=== PATIENT | male | born 1995 | race Caucasian/White ===

== ENCOUNTER 2017-08-21 08:07 | Emergency (ER) | payer OTHER ==
[~2017-08-21] VITALS: Ht 180.3 cm; Wt 91.2 kg
[~2017-08-21 08:07] MED LIST: CIPR250T30 PO; CIPR500T94 PO; DICL75TA PO; HYDR-971 PO; KETO10TA PO; ONDA4TAB10 PO; TAMS0.4C97 PO
[2017-08-21] MEDS ORDERED: 0.9 % SODIUM CHLORIDE 10 ML DISP.SYRIN. IV PRN (08:45)
[2017-08-21] MEDS ORDERED: KETOROLAC 30 MG/ML VIAL. IV ONE (08:45)
[2017-08-21] MEDS ORDERED: ONDANSETRON PF 4 MG/2 ML VIAL. IV ONE (08:45)
[2017-08-21] MEDS: IV NORMAL SALINE 1,000ML 1,000 ML IV SCH ×2 (08:54→09:37)
[2017-08-21 09:05] LABS: BILIRUBIN,URINE NEG (NEG); CLARITY,URINE HAZY; COLOR,URINE YELLOW; GLUCOSE,URINE NEG (NEG)
[2017-08-21 09:06] LABS: BACTERIA,URINE 0 /HPF (0-FEW); NITRITE,URINE NEG (NEG); RBC,URINE >40 /HPF (0-2); UROBILINOGEN,URINE 0.2 mg/dL (0.2 mg/dL); WBC,URINE RARE /HPF (0-4)
[2017-08-21 09:06] LABS: BASO # 0.1 x10^3/uL (0.0-0.2); BASO % 1 % (0-3); EOS # 0.2 x10^3/uL (0.0-0.7); EOS % 1 % (0-3); LYMPH # 1.9 x10^3/uL (1.0-4.8); LYMPH % 17 % (24-48); MEAN CORPUSCULAR HEMOGLOBIN 31 pg (25-35); MEAN CORPUSCULAR HGB CONC 34 g/dL (31-37); MEAN CORPUSCULAR VOLUME 92 fL (79-100); MONO # 0.8 x10^3/uL (0.0-1.1); MONO % 8 % (0-9); NEUT % 73 % (31-73); PLATELET COUNT 211 x10^3/uL (140-400); RED BLOOD COUNT 4.45 x10^6/uL (4.30-5.70); RED CELL DISTRIBUTION WIDTH 12.9 % (11.5-14.5)
--- NOTE | 2017-08-21 09:19 | PHYS DOC ---
Past History Past Medical History: Kidney Stones Past Surgical History: Other Smoking: Non-smoker Alcohol Use: None Drug Use: None Adult General Chief Complaint Chief Complaint: FLANK PAIN [facility] HPI 22-year-old male patient with history of multiple kidney stones and treatment with lithotripsy and stent placement in the left kidney, complaining of pressure feeling in right flank since yesterday. Patient complaining of severe right flank pain since 4 AM today as a constant and sharp pain with radiation to lower abdomen and associated with nausea without vomiting. Patient complaining of dark-colored urine. Patient states the pain getting worse with movement and rated his pain 9/10.. Patient denies fever and chills, vomiting, diarrhea. Patient states he thinks he was dehydrated for the last few days because he didn't drink enough liquids. Review of Systems Review of Systems Constitutional: Denies fever or chills [] Eyes: Denies change in visual acuity, redness, or eye pain [] HENT: Denies nasal congestion or sore throat [] Respiratory: Denies cough or shortness of breath [] Cardiovascular: No additional information not addressed in HPI [] GI: Denies abdominal pain, vomiting, bloody stools or diarrhea , reports nausea [] : Denies dysuria or hematuria, reports flank pain [] Musculoskeletal: Denies back pain or joint pain [] Integument: Denies rash or skin lesions [] Neurologic: Denies headache, focal weakness or sensory changes [] Endocrine: Denies polyuria or polydipsia [] All other systems were reviewed and found to be within normal limits, except as documented in this note. Current Medications Current Medications Current Medications Medications (Trade) Dose Ordered Sig/[facility] Start Time Stop Time Status Last Admin Dose Admin Ketorolac Tromethamine (Toradol) 30 mg 1X ONCE 08/21/17 08:45 08/21/17 08:46 DC 08/21/17 08:57 30 MG Ondansetron HCl (Zofran) 4 mg 1X ONCE 08/21/17 08:45 08/21/17 08:46 DC 08/21/17 08:56 4 MG Sodium Chloride (Normal Saline Flush) 10 ml QSHIFT PRN 08/21/17 08:45 Allergies Allergies Allergies Coded Allergies Type Severity Reaction Last Updated Verified No Known Drug Allergies 08/13/15 No Physical Exam Physical Exam Constitutional: Well developed, well nourished, moderate distress, non-toxic appearance. [] HENT: Normocephalic, atraumatic, bilateral external ears normal, oropharynx moist, no oral exudates, nose normal. [] Eyes: PERRLA, EOMI, conjunctiva normal, no discharge. [] Neck: Normal range of motion, no tenderness, supple, no stridor. [] Cardiovascular:Heart rate regular rhythm, no murmur [] Lungs & Thorax: Bilateral breath sounds clear to auscultation [] Abdomen: Bowel sounds normal, soft, no tenderness, no masses, no pulsatile masses. [] Skin: Warm, dry, no erythema, no rash. [] Back: No tenderness, mild right CVA tenderness. [] Extremities: No tenderness, no cyanosis, no clubbing, ROM intact, no edema. [] Neurologic: Alert and oriented X 3, normal motor function, normal sensory function, no focal deficits noted. [] Psychologic: Affect normal, judgement normal, mood normal. [] Current Patient Data Vital Signs Vital Signs Date Time Temp Pulse Resp B/P (MAP) Pulse Ox O2 Delivery O2 Flow Rate FiO2 08/21/17 08:30 97.4 66 18 95 Room Air Lab Results Laboratory Tests Test 08/21/17 08:35 08/21/17 08:48 Urine Collection Type Void Urine Color Yellow Urine Clarity Hazy Urine pH 5.5 Urine Specific [place] >=1.030 Urine Protein 30 mg/dl (NEG-TRACE) Urine Glucose (UA) Neg mg/dL (NEG) Urine Ketones (Stick) Trace mg/dL (NEG) Urine Blood Large (NEG) Urine Nitrite Neg (NEG) Urine Bilirubin Neg (NEG) Urine Urobilinogen Dipstick 0.2 mg/dL (0.2 mg/dL) Urine Leukocyte Esterase Neg (NEG) Urine RBC >40 /HPF (0-2) Urine WBC Rare /HPF (0-4) Urine Squamous Epithelial Cells None /LPF Urine Bacteria 0 /HPF (0-FEW) Urine Mucus Marked /LPF White Blood Count 11.0 x10^3/uL (4.0-11.0) Red Blood Count 4.45 x10^6/uL (4.30-5.70) Hemoglobin 14.0 g/dL (13.0-17.5) Hematocrit 41.0 % (39.0-53.0) Mean Corpuscular Volume 92 fL (79-100) Mean Corpuscular Hemoglobin 31 pg (25-35) Mean Corpuscular Hemoglobin Concent 34 g/dL (31-37) Red Cell Distribution Width 12.9 % (11.5-14.5) Platelet Count 211 x10^3/uL (140-400) Neutrophils (%) (Auto) 73 % (31-73) Lymphocytes (%) (Auto) 17 % (24-48) L Monocytes (%) (Auto) 8 % (0-9) Eosinophils (%) (Auto) 1 % (0-3) Basophils (%) (Auto) 1 % (0-3) Neutrophils # (Auto) 8.0 x10^3uL (1.8-7.7) H Lymphocytes # (Auto) 1.9 x10^3/uL (1.0-4.8) Monocytes # (Auto) 0.8 x10^3/uL (0.0-1.1) Eosinophils # (Auto) 0.2 x10^3/uL (0.0-0.7) Basophils # (Auto) 0.1 x10^3/uL (0.0-0.2) EKG EKG [] Radiology/Procedures Radiology/Procedures [CT abdomen and pelvis reported 2 mm stone in right distal ureter with mild hydronephrosis] Course & Med Decision Making Course & Med Decision Making Pertinent Labs and Imaging studies reviewed. (See chart for details) [ Evaluation of patient in ER showed 22-year-old male patient with history of kidney stones presented to ER with right flank pain since this morning. Patient had mild right flank tenderness and treated with IV fluid and Zofran and Toradol and morphine and felt better. Labs was unremarkable except for hematuria. CT showed 2 mm stone in the right distal ureter. Patient instructed to follow up with his urologist and increase fluid intake and activity and strain all of his urine.] Dragon Disclaimer Dragon Disclaimer This electronic medical record was generated, in whole or in part, using a voice recognition dictation system. Departure Departure: Impression: Primary Impression: Renal colic on right side Additional Impression: Ureterolithiasis Disposition: 01 HOME, SELF-CARE (At 1015) Condition: IMPROVED Referrals: VERÓNICA FARRIS (PCP) Patient Instructions: Diet for Kidney Stones, Kidney Stones Additional Instructions: Follow-up with your urologist in one or 2 days Drink plenty of liquids Return [facility] if not getting better Scripts Tramadol Hcl (ULTRAM) 50 Mg Tablet 50 MG PO PRN Q6HRS Y for PAIN, #20 TAB Prov: LOVE COOLEY MD 08/21/17 Ondansetron (ZOFRAN ODT) 4 Mg Tab.rapdis 1 TAB SL Q8HRS, #15 TAB Prov: LOVE COOLEY MD 08/21/17 Ibuprofen (IBUPROFEN) 800 Mg Tablet 1 TAB PO TID, #30 TAB Prov: LOVE COOLEY MD 08/21/17 Tamsulosin Hcl (FLOMAX) 0.4 Mg Cap.er.24h 1 CAP PO DAILY, #30 CAP 11 Refills Prov: LOVE COOLEY MD 08/21/17 Problem Qualifiers LOVE COOLEY MD Aug 21, 2017 09:19
[2017-08-21 09:23] LABS: ALBUMIN 3.7 g/dL (3.4-5.0); ALBUMIN/GLOBULIN RATIO 1.3 (1.0-1.7); CALCIUM 8.4 mg/dL (8.5-10.1); CREATININE 1.1 mg/dL (0.7-1.3); POTASSIUM 3.5 mmol/L (3.5-5.1); TOTAL BILIRUBIN 0.5 mg/dL (0.2-1.0); TOTAL PROTEIN 6.6 g/dL (6.4-8.2)
[2017-08-21] MEDS ORDERED: MORPHINE SULFATE 4 MG/ML DISP.SYRIN. ONE (09:25)
[2017-08-21] MEDS ORDERED: IV NORMAL SALINE 1,000ML 1,000 ML IV ONE (09:45)
[2017-08-21] MEDS ORDERED: MORPHINE SULFATE 4 MG/ML DISP.SYRIN. IV ONE (09:45)
--- NOTE | 2017-08-21 10:05 | RAD ---
CT abdomen and pelvis without contrast 08/21/2017 Clinical indication: Acute flank pain. Comparison: CT abdomen and pelvis 08/13/2015, 01/21/2015. Technique: Multiple CT images of the abdomen and pelvis were obtained without contrast according to standard protocol. PQRS Compliance Statement: One or more of the following individualized dose reduction techniques were utilized for this examination: 1. Automated exposure control 2. Adjustment of the mA and/or kV according to patient size 3. Use of iterative reconstruction technique Findings: Evaluation of the solid abdominopelvic viscera, lymphadenopathy and vasculature is limited in the absence of intravenous contrast. The dome of the liver is not evaluated as it is not included in the [id number]. Unenhanced contours of the gallbladder, spleen, adrenal glands, pancreas and left kidney are grossly unremarkable. There is a 2 mm obstructive calculus in the distal right ureter just proximal to the UVJ series 2/image 117 with resultant mild upstream hydroureteronephrosis. No nephrolithiasis. Small and large bowel loops are normal in caliber without obstruction. Appendix is normal in appearance. No abdominal free fluid. No pneumoperitoneum. Mildly distended and unopacified urinary bladder is unremarkable without intraluminal radiopaque calculi. Prostate and seminal vesicles are present. There is a tiny fat-containing left inguinal hernia. There are no destructive osseous lesions. Impression: 2 mm obstructive distal right ureteral calculus with mild upstream hydroureteronephrosis.
[2017-08-21] MEDS ORDERED: ONDA4TAB10 SL (10:21)
[2017-08-21] MEDS ORDERED: IBUP800T19 PO (10:21)
[2017-08-21] MEDS ORDERED: TAMS0.4C97 PO (10:21)
[2017-08-21] MEDS ORDERED: TRAM-48 PO (10:21)
[2017-08-21] MEDS ORDERED: TAMSULOSIN 0.4 MG CAP.ER.24H. PO ONE (10:30)
[2017-08-21] MEDS ORDERED: traMADol 50 MG TABLET PO ONE (10:30)
[2017-08-21 10:53] VITALS: BP 123/77
== END 2017-08-21 10:56 | disposition home or self-care (01) ==
LOC: ER 08:07
DX: N13.2 Hydronephrosis with renal and ureteral calculous obstruction (principal); Z87.442 Personal history of urinary calculi
CPT/HCPCS: 36415; 74176; 80053; 81001; 85025; 96361; 96374; 96375; 99285; J1885; J2270; J2405; J7030

== ENCOUNTER 2018-02-23 15:57 | Emergency (ER) | payer OTHER ==
[~2018-02-23] VITALS: Ht 180.3 cm; Wt 88.5 kg
[~2018-02-23 15:57] MED LIST changes: +IBUP800T19 PO; +ONDA4TAB10 SL; +TRAM-48 PO
[2018-02-23 16:00] VITALS: BP 161/81
--- NOTE | 2018-02-23 16:23 | ED.ADGEN ---
Past History Past Medical History: Kidney Stones Past Surgical History: Other Smoking: Non-smoker Alcohol Use: None Drug Use: None Adult General Chief Complaint Chief Complaint Right back pain HPI HPI The patient has a history of prior kidney stones treated by Dr. Trevizo and Dr. Kerns. His last kidney stone was in July 2017. Since then, he was well until 3 weeks ago when he noted onset of intermittent right flank pain. This pain was waxing and waning mild to moderate in severity until this morning at 8: 00 AM when he woke with severe 10/10 right flank pain. He had nausea without vomiting. He's had no fevers. Denies hematuria. Review of Systems Review of Systems Constitutional: Denies fever or chills Eyes: Denies change in visual acuity, redness, or eye pain HENT: Denies nasal congestion or sore throat Respiratory: Denies cough or shortness of breath Cardiovascular: Denies chest pain or palpitations GI: Denies abdominal pain, nausea, vomiting, bloody stools or diarrhea : Denies dysuria or hematuria. No flank pain Musculoskeletal: With right back pain, no joint pain Integument: Denies rash or skin lesions Neurologic: Denies headache, focal weakness or sensory changes Endocrine: Denies polyuria or polydipsia All other systems were reviewed and found to be within normal limits, except as documented in this note. Current Medications Current Medications Current Medications Medications (Trade) Dose Ordered Sig/Marcella Start Time Stop Time Status Last Admin Dose Admin Fentanyl Citrate (Fentanyl 2ml Vial) 100 mcg 1X ONCE 02/23/18 16:50 02/23/18 16:51 DC 02/23/18 16:35 100 MCG Ketorolac Tromethamine (Toradol) 30 mg 1X ONCE 02/23/18 16:50 02/23/18 16:51 DC 02/23/18 16:36 30 MG Ondansetron HCl (Zofran) 4 mg 1X ONCE 02/23/18 16:50 02/23/18 16:51 DC 02/23/18 16:36 4 MG Sodium Chloride 1,000 ml @ 1,000 mls/hr 1X ONCE 02/23/18 16:30 02/23/18 17:29 DC 02/23/18 16:35 1,000 MLS/HR Allergies Allergies Allergies Coded Allergies Type Severity Reaction Last Updated Verified No Known Drug Allergies 08/13/15 No Physical Exam Physical Exam Constitutional: Well developed, well nourished, no acute distress, non-toxic appearance. HENT: Normocephalic, atraumatic, bilateral external ears normal, oropharynx moist, no oral exudates, nose normal. Eyes: PERRLA, EOMI, conjunctiva normal, no discharge. Neck: Normal range of motion, no tenderness, supple, no stridor. Cardiovascular:Heart rate regular rhythm, no murmur Lungs & Thorax: Bilateral breath sounds clear to auscultation Abdomen: Bowel sounds normal, soft, no tenderness, no masses, no pulsatile masses. Right lower back tenderness. No flank tenderness Skin: Warm, dry, no erythema, no rash. Back: No tenderness, no CVA tenderness. Extremities: No tenderness, no cyanosis, no clubbing, ROM intact, no edema. Neurologic: Alert and oriented X 3, normal motor function, normal sensory function, no focal deficits noted. Psychologic: Affect normal, judgement normal, mood normal. Current Patient Data Vital Signs Vital Signs Date Time Temp Pulse Resp B/P (MAP) Pulse Ox O2 Delivery O2 Flow Rate FiO2 02/23/18 16:25 Room Air 02/23/18 16:00 98.2 72 18 97 Lab Results Laboratory Tests Test 02/23/18 16:14 02/23/18 16:20 White Blood Count 7.3 x10^3/uL (4.0-11.0) Red Blood Count 4.92 x10^6/uL (4.30-5.70) Hemoglobin 15.4 g/dL (13.0-17.5) Hematocrit 45.3 % (39.0-53.0) Mean Corpuscular Volume 92 fL (79-100) Mean Corpuscular Hemoglobin 31 pg (25-35) Mean Corpuscular Hemoglobin Concent 34 g/dL (31-37) Red Cell Distribution Width 13.1 % (11.5-14.5) Platelet Count 241 x10^3/uL (140-400) Neutrophils (%) (Auto) 57 % (31-73) Lymphocytes (%) (Auto) 34 % (24-48) Monocytes (%) (Auto) 7 % (0-9) Eosinophils (%) (Auto) 2 % (0-3) Basophils (%) (Auto) 1 % (0-3) Neutrophils # (Auto) 4.2 x10^3uL (1.8-7.7) Lymphocytes # (Auto) 2.5 x10^3/uL (1.0-4.8) Monocytes # (Auto) 0.5 x10^3/uL (0.0-1.1) Eosinophils # (Auto) 0.1 x10^3/uL (0.0-0.7) Basophils # (Auto) 0.1 x10^3/uL (0.0-0.2) Sodium Level 139 mmol/L (136-145) Potassium Level 3.8 mmol/L (3.5-5.1) Chloride Level 103 mmol/L (98-107) Carbon Dioxide Level 30 mmol/L (21-32) Anion Gap 6 (6-14) Blood Urea Nitrogen 12 mg/dL (8-26) Creatinine 0.9 mg/dL (0.7-1.3) Estimated GFR (Cockcroft-Gault) 104.6 BUN/Creatinine Ratio 13 (6-20) Glucose Level 89 mg/dL (70-99) Calcium Level 9.7 mg/dL (8.5-10.1) Total Bilirubin 0.5 mg/dL (0.2-1.0) Aspartate Amino Transferase (AST) 28 U/L (15-37) Alanine Aminotransferase (ALT) 55 U/L (16-63) Alkaline Phosphatase 82 U/L (46-116) Total Protein 7.8 g/dL (6.4-8.2) Albumin 4.3 g/dL (3.4-5.0) Albumin/Globulin Ratio 1.2 (1.0-1.7) Lipase 93 U/L (73-393) Urine Collection Type Unknown Urine Color Colorless Urine Clarity Clear Urine pH 7.0 Urine Specific [place] <=1.005 Urine Protein Neg (NEG-TRACE) Urine Glucose (UA) Neg mg/dL (NEG) Urine Ketones (Stick) Neg mg/dL (NEG) Urine Blood Neg (NEG) Urine Nitrite Neg (NEG) Urine Bilirubin Neg (NEG) Urine Urobilinogen Dipstick 0.2 mg/dL (0.2 mg/dL) Urine Leukocyte Esterase Neg (NEG) Urine RBC 0 /HPF (0-2) Urine WBC Rare /HPF (0-4) Urine Squamous Epithelial Cells None /LPF Urine Bacteria 0 /HPF (0-FEW) Laboratory Tests Test 02/23/18 16:14 02/23/18 16:20 White Blood Count 7.3 x10^3/uL Red Blood Count 4.92 x10^6/uL Hemoglobin 15.4 g/dL Hematocrit 45.3 % Mean Corpuscular Volume 92 fL Mean Corpuscular Hemoglobin 31 pg Mean Corpuscular Hemoglobin Concent 34 g/dL Red Cell Distribution Width 13.1 % Platelet Count 241 x10^3/uL Neutrophils (%) (Auto) 57 % Lymphocytes (%) (Auto) 34 % Monocytes (%) (Auto) 7 % Eosinophils (%) (Auto) 2 % Basophils (%) (Auto) 1 % Neutrophils # (Auto) 4.2 x10^3uL Lymphocytes # (Auto) 2.5 x10^3/uL Monocytes # (Auto) 0.5 x10^3/uL Eosinophils # (Auto) 0.1 x10^3/uL Basophils # (Auto) 0.1 x10^3/uL Sodium Level 139 mmol/L Potassium Level 3.8 mmol/L Chloride Level 103 mmol/L Carbon Dioxide Level 30 mmol/L Anion Gap 6 Blood Urea Nitrogen 12 mg/dL Creatinine 0.9 mg/dL Estimated GFR (Cockcroft-Gault) 104.6 BUN/Creatinine Ratio 13 Glucose Level 89 mg/dL Calcium Level 9.7 mg/dL Total Bilirubin 0.5 mg/dL Aspartate Amino Transf (AST/SGOT) 28 U/L Alanine Aminotransferase (ALT/SGPT) 55 U/L Alkaline Phosphatase 82 U/L Total Protein 7.8 g/dL Albumin 4.3 g/dL Albumin/Globulin Ratio 1.2 Lipase 93 U/L Urine Collection Type Unknown Urine Color Colorless Urine Clarity Clear Urine pH 7.0 Urine Specific [place] <=1.005 Urine Protein Neg Urine Glucose (UA) Neg mg/dL Urine Ketones (Stick) Neg mg/dL Urine Blood Neg Urine Nitrite Neg Urine Bilirubin Neg Urine Urobilinogen Dipstick 0.2 mg/dL Urine Leukocyte Esterase Neg Urine RBC 0 /HPF Urine WBC Rare /HPF Urine Squamous Epithelial Cells None /LPF Urine Bacteria 0 /HPF Current Medications Medications (Trade) Dose Ordered Sig/Marcella Route PRN Reason Start Time Stop Time Status Last Admin Dose Admin Ketorolac Tromethamine (Toradol) 30 mg 1X ONCE IV 02/23/18 16:50 02/23/18 16:51 DC 02/23/18 16:36 30 MG Sodium Chloride 1,000 ml @ 1,000 mls/hr 1X ONCE IV 02/23/18 16:30 02/23/18 17:29 DC 02/23/18 16:35 1,000 MLS/HR Fentanyl Citrate (Fentanyl 2ml Vial) 100 mcg 1X ONCE IV 02/23/18 16:50 02/23/18 16:51 DC 02/23/18 16:35 100 MCG Ondansetron HCl (Zofran) 4 mg 1X ONCE IV 02/23/18 16:50 02/23/18 16:51 DC 02/23/18 16:36 4 MG EKG EKG 17:45 ECG Sinus Bradycardia without acute changes Radiology/Procedures Radiology/[place] [address] IMAGING REPORT Signed PATIENT: CHRISTIANO CHOI ACCOUNT: [id number] : 1995 LOCATION: ER AGE: 22 SEX: M EXAM STATUS: PRE ER ORD. PHYSICIAN: ALEXX CLAYTON MD REASON: right flank pain PROCEDURE: CT ABDOMEN PELVIS WO CONTRAST PQRS Compliance Statement: One or more of the following individualized dose reduction techniques were utilized for this examination: 1. Automated exposure control 2. Adjustment of the mA and/or kV according to patient size 3. Use of iterative reconstruction technique CT ABDOMEN PELVIS WO CONTRAST Clinical Indication: right flank pain x 3 weeks, hx of stones, surg 2016 for kidney stones Comparison: CT abdomen and pelvis without contrast, August 21, 2017. Technique: Helical CT imaging of the abdomen and pelvis is performed without IV or oral contrast. Findings: Evaluation of solid organs and bowel is limited without oral and IV contrast, decreasing sensitivity for detection of pathology. Lung bases are clear. Cardiac size normal. Liver, gallbladder, spleen, pancreas, adrenal glands, and abdominal aorta caliber are normal. There is no renal, ureteral, or bladder calculus. There is no perinephric stranding or hydronephrosis. Stomach unremarkable. No dilated small bowel. No colon wall thickening. The appendix is normal. There are a few subcentimeter mesenteric lymph nodes. No abdominal adenopathy or free fluid. Urinary bladder is normal. Prostate and seminal vesicles are normal. No pelvic free fluid. No acute bone abnormality. IMPRESSION: No acute abdominal or pelvic abnormality. Electronically signed by: Delbert Monet MD (02/23/2018 4:44 PM) [facility] DICTATED AND SIGNED BY: DELBERT MONET MD DATE: 02/23/18 1824 CC: VERÓNICA FARRIS; ALEXX CLAYTON MD ~ Course & Med Decision Making Course & Med Decision Making Patient presents with right lower back pain DDx-kidney stone, lumbar strain, UTI The patient was stable in the ED, improved after IV NS hydration, Toradol and fentanyl. Labs were unremarkable. U/A unremarkable. Abdominal pelvic CT scan unremarkable. ECG without acute injury pattern. The cause of the patient's pain is unclear and maybe secondary to lumbar strain. Patient was given his results and advised to return to the ED if he develops worse pain, fevers, vomiting or SOB. Final Impression Final Impression Clinical Impression Right Sided Back Pain Dragon Disclaimer [place] Disclaimer This electronic medical record was generated, in whole or in part, using a voice recognition dictation system. Departure Departure: Impression: Primary Impression: Right-sided back pain Disposition: HOME, SELF-CARE Condition: STABLE Referrals: SHARON RENAE MD Follow-up on Sunday for further evaluation Patient Instructions: Back Pain, Adult, [id number] Additional Instructions: Follow-up on Sunday for further evaluation of your right sided back pain. If you develop worse pain, fevers, shortness of breath, vomiting return to the Emergency Department immediately. Scripts [Parafon Forte] No Conflict Check 500 MG PO TID for 5 Days, #15 Prov: ALEXX CLAYTON MD 02/23/18 Ibuprofen (IBUPROFEN) 800 Mg Tablet 1 TAB PO TID, #15 TAB Prov: ALEXX CLAYTON MD 02/23/18 ALEXX CLAYTON MD Feb 23, 2018 16:23
[2018-02-23 16:29] LABS: BASO # 0.1 x10^3/uL (0.0-0.2); BASO % 1 % (0-3); EOS # 0.1 x10^3/uL (0.0-0.7); EOS % 2 % (0-3); HEMATOCRIT 45.3 % (39.0-53.0); HEMOGLOBIN 15.4 g/dL (13.0-17.5); LYMPH # 2.5 x10^3/uL (1.0-4.8); LYMPH % 34 % (24-48); MEAN CORPUSCULAR HEMOGLOBIN 31 pg (25-35); MEAN CORPUSCULAR HGB CONC 34 g/dL (31-37); MEAN CORPUSCULAR VOLUME 92 fL (79-100); MONO # 0.5 x10^3/uL (0.0-1.1); MONO % 7 % (0-9); NEUT # 4.2 x10^3uL (1.8-7.7); NEUT % 57 % (31-73); PLATELET COUNT 241 x10^3/uL (140-400); RED BLOOD COUNT 4.92 x10^6/uL (4.30-5.70); RED CELL DISTRIBUTION WIDTH 13.1 % (11.5-14.5); WHITE BLOOD COUNT 7.3 x10^3/uL (4.0-11.0)
[2018-02-23] MEDS ORDERED: IV NORMAL SALINE 1,000ML 1,000 ML IV ONE (16:30)
[2018-02-23 16:36] LABS: BILIRUBIN,URINE NEG (NEG); CLARITY,URINE CLEAR; COLOR,URINE COLORLESS; GLUCOSE,URINE NEG (NEG)
[2018-02-23 16:37] LABS: BACTERIA,URINE 0 /HPF (0-FEW); NITRITE,URINE NEG (NEG); RBC,URINE 0 /HPF (0-2); UROBILINOGEN,URINE 0.2 mg/dL (0.2 mg/dL); WBC,URINE RARE /HPF (0-4)
[2018-02-23 16:43] LABS: ALBUMIN 4.3 g/dL (3.4-5.0); ALBUMIN/GLOBULIN RATIO 1.2 (1.0-1.7); CALCIUM 9.7 mg/dL (8.5-10.1); CREATININE 0.9 mg/dL (0.7-1.3); GFR 104.6; POTASSIUM 3.8 mmol/L (3.5-5.1); TOTAL BILIRUBIN 0.5 mg/dL (0.2-1.0); TOTAL PROTEIN 7.8 g/dL (6.4-8.2)
--- NOTE | 2018-02-23 16:47 | RAD ---
PQRS Compliance Statement: One or more of the following individualized dose reduction techniques were utilized for this examination: 1. Automated exposure control 2. Adjustment of the mA and/or kV according to patient size 3. Use of iterative reconstruction technique CT ABDOMEN PELVIS WO CONTRAST Clinical Indication: right flank pain x 3 weeks, hx of stones, surg 2016 for kidney stones Comparison: CT abdomen and pelvis without contrast, August 21, 2017. Technique: Helical CT imaging of the abdomen and pelvis is performed without IV or oral contrast. Findings: Evaluation of solid organs and bowel is limited without oral and IV contrast, decreasing sensitivity for detection of pathology. Lung bases are clear. Cardiac size normal. Liver, gallbladder, spleen, pancreas, adrenal glands, and abdominal aorta caliber are normal. There is no renal, ureteral, or bladder calculus. There is no perinephric stranding or hydronephrosis. Stomach unremarkable. No dilated small bowel. No colon wall thickening. The appendix is normal. There are a few subcentimeter mesenteric lymph nodes. No abdominal adenopathy or free fluid. Urinary bladder is normal. Prostate and seminal vesicles are normal. No pelvic free fluid. No acute bone abnormality. IMPRESSION: No acute abdominal or pelvic abnormality. Electronically signed by: Delbert Monet MD (02/23/2018 4:44 PM) [facility]
[2018-02-23] MEDS ORDERED: ONDANSETRON PF 4 MG/2 ML VIAL. IV ONE (16:50)
[2018-02-23] MEDS ORDERED: KETOROLAC 30 MG/ML VIAL. IV ONE (16:50)
--- NOTE | 2018-02-23 18:18 | EKG ---
[address] [address] Test Date: 2018-02-23 Test Time: 17:40:48 Pat Name: CHRISTIANO CHOI Department: Room: Gender: M [employer] Systems Designer: CLYDE : 1995 Requested By: ALEXX CLAYTON Order Number: [id number] Reading MD: Measurements Intervals [place] Rate: 48 P: 33 CA: 154 QRS: 31 QRSD: 92 T: 20 QT: 412 QTc: 371 Interpretive Statements SINUS BRADYCARDIA NO SPECIFIC ECG ABNORMALITIES RI6.01 No previous ECG available for comparison
[2018-02-23] MEDS ORDERED: IBUP800T19 PO (18:23)
[2018-02-23] MEDS ORDERED: PARAFON FORTE PO (18:23)
== END 2018-02-23 18:38 | disposition home or self-care (01) ==
LOC: ER 15:57
DX: M54.5 Low back pain (principal); Z87.442 Personal history of urinary calculi
CPT/HCPCS: 36415; 74176; 80053; 81001; 83690; 85025; 93005; 96374; 96375; 99285; J1885; J2405; J3010; 96361; J7030